=== PATIENT | female | born 1970 | race Caucasian/White ===

== ENCOUNTER → 2018-04-03 | Outpatient (CLI) | payer BC ==
[~2018-04-03] MED LIST: ASCO-599 PO; CALCIUM PO; CET10 PO; CHOL200021 PO; FISH OIL; IBU800 PO; KET10 PO; MON10 PO; MULT-1335 PO; OMEG-26 PO; PER PO; PERCOSET PO; TUM500 PO; [UNRECOGNIZED DRUG - OTHER]
--- NOTE | 2018-04-03 13:49 | RADIOLOGY IMAGING REPORT ---
FACILITY: [facility] - [place] PATIENT NAME: JONES SIMPSON : [id number] MR: [id number] V: [id number] EXAM DATE: ORDERING PHYSICIAN: ALEKSANDR SALDAÑA TECHNOLOGIST: Eliane Bhagat PROCEDURE:BILATERAL DIGITAL SCREENING MAMMOGRAM WITH CAD ASSISTED INTERPRETATION & 3D TOMOSYNTHESIS COMPARISON:Prior mammograms 12/04/16, 01/12/15, 12/16/13. INDICATIONS:SCREENING FINDINGS: Moderately dense fibroglandular tissue is seen throughout the breasts. The parenchymal pattern has remained stable allowing for difference in mammographic technique & patient positioning. There is no evidence of malignant appearing mass, malignant appearing calcifications or other secondary sign of malignancy in either breast. DIAGNOSTIC CATEGORY 1--NEGATIVE. RECOMMENDATIONS: ROUTINE MAMMOGRAM AND CLINICAL EVALUATION. IMPRESSION: BIRADS 1: Negative. No significant abnormality is seen. Dictated by: Alexa Arvizu M.D. on 04/03/2018 at 9:36 Transcribed by: TONIA on 04/03/2018 at 9:40 Approved by: Alexa Arvizu M.D. on 04/03/2018 at 13:48 [facility]
== END ==
LOC: MAMO 01:27
PROVIDERS: ATTEND Obstetrics & Gynecology
DX: Z12.31 Encounter for screening mammogram for malignant neoplasm of breast (principal)
CPT/HCPCS: 77063; 77067